=== PATIENT | male | born 1965 | race Caucasian/White ===

== ENCOUNTER 2022-10-09 15:26 | Emergency (ER) | payer OTHER ==
[~2022-10-09] VITALS: Ht 167.6 cm; Wt 72.7 kg
[~2022-10-09 15:26] MED LIST: FLAGYL250 MG OR; FLOMAX0.4 M1 PO; KETOCONAZOLE200 MG OR; NO MEDS; PRILOSEC20 MG/CAP PO
[2022-10-09] MEDS ORDERED: CEPHALEXIN500 M1 PO (15:45)
[2022-10-09 16:21] VITALS: BP 146/93
[2022-10-09] MEDS ORDERED: HYDROCO/APAP1 TA9 PO (16:30)
== END 2022-10-09 16:34 | disposition home or self-care (01) | DRG 914 ==
LOC: ED 15:26
PROC: 3E0T3BZ Introduction of Anesthetic Agent into Peripheral Nerves and Plexi, Percutaneous Approach (ICD-10-PCS; principal; 2022-10-09)
DX: S68.522A Partial traumatic transphalangeal amputation of left thumb, initial encounter (principal); I10 Essential (primary) hypertension; W23.0XXA Caught, crushed, jammed, or pinched between moving objects, initial encounter; Y93.89 Activity, other specified; Y92.89 Other specified places as the place of occurrence of the external cause; Y99.0 Civilian activity done for income or pay